=== PATIENT | male | born 1965 | race Caucasian/White ===

== ENCOUNTER 2016-07-07 09:03 | Emergency (ER) | payer BC, OTHER ==
--- NOTE | 2016-07-07 09:34 | EDM.PDOC ---
ED HPI GENERAL MEDICAL PROBLEM - General Chief Complaint: Neuro Symptoms/Deficits Stated Complaint: NUMBNESS IN FACE Time Seen by Provider: 07/07/16 09:29 - History of Present Illness INITIAL COMMENTS - FREE TEXT/NARRATIVE: HISTORY AND PHYSICAL: History of present illness: Patient is a 51-year-old white male with no significant past medical history judgment chest pains off and on for last several days he states it is more in his left neck but does radiate to his chest he does not recall a particularly associated shortness of breath palpitations or diaphoresis he does have a family history of coronary artery disease and a history of borderline elevated cholesterol. He does not have pain at this time he denies any palliating or aggravating factor Review of systems: As per history of present illness and below otherwise all systems reviewed and negative. Past medical history: As per history of present illness and as reviewed below otherwise noncontributory. Surgical history: As per history of present illness and as reviewed below otherwise noncontributory. Social history: No reported history of drug or alcohol abuse. Family history: As per history of present illness and as reviewed below otherwise noncontributory. Physical exam: HEENT: Atraumatic, normocephalic, pupils reactive, negative for conjunctival pallor or scleral icterus, mucous membranes moist, throat clear, neck supple, nontender, trachea midline. Lungs: Clear to auscultation, breath sounds equal bilaterally, chest nontender. Heart: S1S2, regular, negative for clicks, rubs, or JVD. Abdomen: Soft, nondistended, nontender. Negative for masses or hepatosplenomegaly. Negative for costovertebral tenderness. Pelvis: Stable nontender. Genitourinary: Deferred. Rectal: Deferred. Extremities: Atraumatic, negative for cords or calf pain. Neurovascular unremarkable. Neuro: Awake, alert, oriented. Cranial nerves II through XII unremarkable. Cerebellum unremarkable. Motor and sensory unremarkable throughout. Exam nonfocal. Diagnostics: CBC CMP troponin PT/INR chest x-ray EKG Therapeutics: IV O2 monitor patient to take aspirin 324 mg this morning Impression: #1 chest pain Definitive disposition and diagnosis as appropriate pending reevaluation and review of above. - Related Data Allergies Allergy/AdvReac Type Severity Reaction Status Date / Time No Known Allergies Allergy Verified 07/07/16 09:10 Home Meds: Home Meds . [No Known Home Meds] 07/07/16 [History] Past Medical History Neurological History: Reports: Other (see below) Other Neuro History: [facility] P[facility]y Social & Family History - Family History Family Medical History: Noncontributory - Tobacco Use Smoking Status *Q: Never Smoker - Recreational Drug Use Recreational Drug Use: No ED ROS GENERAL - Review of Systems Review Of Systems: ROS reveals no pertinent complaints other than HPI. ED EXAM, GENERAL - Physical Exam Exam: See Below Course - Vital Signs Text/Narrative:: Patient was offered admission for observation we discussed risks benefits and as clinical statement as well as reviewed all of his diagnostic care patient for outpatient followup declined admission for observation understands risks benefits his return as needed as discussed he is to call clinic for followup and followup with cardiology for appropriate further testing and evaluation as discussed Last Recorded V/S: Last Vital Signs Temp 35.7 C 07/07/16 09:10 Pulse 47 L 07/07/16 09:37 Resp 18 07/07/16 09:37 BP 142/82 H 07/07/16 09:37 Pulse Ox 100 07/07/16 09:37 - Orders/Labs/Meds Orders: Active Orders 24 hr Category Date Time Status EKG 12 Lead [EKG Documentation Completion] [RC] STAT Care 07/07/16 09:20 Active Chest 1V Frontal [CR] Stat Exams 07/07/16 09:19 Taken COMPREHENSIVE METABOLIC PN,CMP [CHEM] Stat Lab 07/07/16 09:27 Received Labs: Laboratory Tests 07/07/16 07/07/16 07/07/16 Range/Units 09:27 09:27 09:27 WBC 4.99 (4.0-11.0) K/uL RBC 4.51 (4.50-5.90) M/uL Hgb 14.5 (13.0-17.0) g/dL Hct 42.4 (38.0-50.0) % MCV 94.0 (80.0-98.0) fL MCH 32.2 H (27.0-32.0) pg MCHC 34.2 (31.0-37.0) g/dL RDW Std Deviation 46.3 (28.0-62.0) fl RDW Coeff of Mehdi 14 (11.0-15.0) % Plt Count 166 (150-400) K/uL MPV 10.10 (7.40-12.00) fL Neut % (Auto) 62.1 (48.0-80.0) % Lymph % (Auto) 26.3 (16.0-40.0) % Newberry % (Auto) 9.8 (0.0-15.0) % Eos % (Auto) 1.2 (0.0-7.0) % Baso % (Auto) 0.6 (0.0-1.5) % Neut # (Auto) 3.1 (1.4-5.7) K/uL Lymph # (Auto) 1.3 (0.6-2.4) K/uL Newberry # (Auto) 0.5 (0.0-0.8) K/uL Eos # (Auto) 0.1 (0.0-0.7) K/uL Baso # (Auto) 0.0 (0.0-0.1) K/uL Nucleated RBC % 0.0 /100WBC Nucleated RBCs # 0 K/uL INR 1.04 (0.86-1.11) Troponin I < 0.10 (0.0-0.29) NG/ML Departure - Departure Time of Disposition: 10:18 Disposition: Home, Self-Care 01 Condition: good Clinical Impression: Chest pain Forms: ED Department Discharge Additional Instructions: The following information is given to patients seen in the emergency department who are being discharged to home. This information is to outline your options for follow-up care. We provide all patients seen in our emergency department with a follow-up referral. The need for follow-up, as well as the timing and circumstances, are variable depending upon the specifics of your emergency department visit. If you don't have a primary care physician on staff, we will provide you with a referral. We always advise you to contact your personal physician following an emergency department visit to inform them of the circumstance of the visit and for follow-up with them and/or the need for any referrals to a consulting specialist. The emergency department will also refer you to a specialist when appropriate. This referral assures that you have the opportunity for followup care with a specialist. All of these measure are taken in an effort to provide you with optimal care, which includes your followup. Under all circumstances we always encourage you to contact your private physician who remains a resource for coordinating your care. When calling for followup care, please make the office aware that this follow-up is from your recent emergency room visit. If for any reason you are refused follow-up, please contact the [facility] emergency department at and asked to speak to the emergency department charge nurse. ANUPAM [facility] Primary [facility] [place] [id number] Followup clinic above and cardiology as discussed aspirin daily return as needed as discussed - My Orders Last 24 Hours: My Active Orders 07/07/16 09:19 Chest 1V Frontal [CR] Stat 07/07/16 09:20 EKG 12 Lead [EKG Documentation Completion] [RC] STAT 07/07/16 09:27 COMPREHENSIVE METABOLIC PN,CMP [CHEM] Stat - Assessment/Plan Last 24 Hours: My Active Orders 07/07/16 09:19 Chest 1V Frontal [CR] Stat 07/07/16 09:20 EKG 12 Lead [EKG Documentation Completion] [RC] STAT 07/07/16 09:27 COMPREHENSIVE METABOLIC PN,CMP [CHEM] Stat
[2016-07-07 10:16] LABS: CHLORIDE,CL 106 mmol/L (98-110); SODIUM,NA 139 mmol/L (136-146)
[2016-07-07 10:32] VITALS: BP 136/77
--- NOTE | 2016-07-07 16:21 | CR ---
EXAM DATE: 07/07/16 PATIENT'S AGE: 51 Patient: MARTINA KAY Facility: [place], [place] Site . Site : [id number] Study: XRay Chest [id number]/26/2017 9:50:52 AM Ordering Physician: Doctor Lo Final Report: INDICATION: chest tightness FINDINGS: A single portable chest x-ray shows a normal cardiac silhouette. The lungs show no focal pulmonary opacities. Sharp pleural margins. No pneumothorax. Old right upper rib fractures. IMPRESSION: No evidence of acute pulmonary abnormalities. Dictated by Carlos Dhaliwal MD @ 07/07/2016 9:59:01 AM Dictated by: Carlos Dhaliwal MD @ 07/07/2016 09:59:10 (Electronic Signature) Report Signed by Proxy and Original Signed Document filed in the Medical Record. MTDD
== END 2016-07-07 10:28 | disposition home or self-care (01) ==
LOC: MW.ED 09:03
DX: R07.9 Chest pain, unspecified (principal)
CPT/HCPCS: 36415; 71010; 71010-26; 80053; 84484; 85025; 85610; 93005; 99284; 99284-25

== ENCOUNTER → 2016-07-16 | Outpatient (CLI) | payer OTHER ==
--- NOTE | 2016-07-16 10:00 | PCM.PRNOTE ---
- Free Text/Narrative Note: Exercise MIBI Indication CP Sestamibi Tc99 25 MCi was given at the peak HR Patient was brought to the stress test lab in postabsorptive state verbal and paper consent was obtained from patient Vital signs at resting state blood pressure of 112/72 with a heart rate of 61 EKG shows sinus rhythm no ST changes no Q waves Maximal heart rate of 162and target heart rate is 144 Patient reached the target heart rate, completed stage V Lake protocol Peak blood pressure is 134/80 Total exercise time of 12.[address] changes with a peak heart rate, with occasional PVCs METS 12.8 No symptom of chest pain or feeling dizzy Impression Normal hemodynamics, normal chronotropic, excellent exercise capacity, negative for ischemia on EKG Plan Nuclear portion pending
--- NOTE | 2016-07-19 14:18 | NM ---
EXAMINATION: Nuclear medicine myocardial perfusion study with exercise stress test. HISTORY: Chest pain. PROCEDURE: Patient exercised according to Lake protocol for 12 minutes and 32 seconds and achieved maximal hea rt rate of 162 beats per minute. Adequate exercise. Following intravenous administration of 27.2 mCi of technetium 99m sestamibi, stress SPECT images i ncluding gating imaging was performed. FINDINGS: Stress myocardial SPECT images demonstrates minimally decreased perfusion along the inferior wall, h owever reviewing the source images this likely represents diaphragmatic attenuation. Review of gated images demonstrates normal wall motion, contractility and wall thickening. The left ventricular ejection fraction is 59 %. The left ventricular chamber size is normal. IMPRESSION: 1. No evidence of myocardial ischemia. 2. Normal ventricular chamber size and function with ejection fraction of 59 %.
== END ==
LOC: MW.NM 06:50
PROVIDERS: ATTEND Internal Medicine
DX: R07.9 Chest pain, unspecified (principal)
CPT/HCPCS: 78451; 78451-26; 93017; A9500

== ENCOUNTER → 2016-07-20 | Outpatient (CLI) | payer OTHER ==
--- NOTE | 2016-08-11 11:22 | NM ---
EXAM DATE: 07/20/16 PATIENT'S AGE: 51 REPORT ADDENDUM ADDENDUM: Additional images were obtained at rest following the administration of 25 mCi of technetium 99m labeled sestamibi. FINDINGS/IMPRESSION: Overall the perfusion pattern at rest is similar to the stress images without evidence of a reversible defect. Wall motion and ejection fraction is similar at 55%. The TID is 1.1. Addendum Dictated by: Armando Medrano MD <Electronically signed by Armando Medrano MD in OV> 07/20/16 1601 58 58 EXAMINATION: Nuclear medicine myocardial perfusion study with exercise stress test. HISTORY: Chest pain. PROCEDURE: Patient exercised according to Lake protocol for 12 minutes and 32 seconds and achieved maximal heart rate of 162 beats per minute. Adequate exercise. Following intravenous administration of 27.2 mCi of technetium 99m sestamibi, stress SPECT images including gating imaging was performed. FINDINGS: Stress myocardial SPECT images demonstrates minimally decreased perfusion along the inferior wall, however reviewing the source images this likely represents diaphragmatic attenuation. Review of gated images demonstrates normal wall motion, contractility and wall thickening. The left ventricular ejection fraction is 59 %. The left ventricular chamber size is normal. IMPRESSION: 1. No evidence of myocardial ischemia. 2. Normal ventricular chamber size and function with ejection fraction of 59 %. Dictated by: Armando Medrnao MD <Electronically signed by Armando Medrano MD in [place]> 07/16/16 at 0952 0 0 Doc Number: [id number] Copies To: Nereida Horvath MD; PCP,None~ MTDD
== END | disposition home or self-care (01) ==
LOC: MW.NM 13:14
PROVIDERS: ATTEND Internal Medicine
DX: R07.9 Chest pain, unspecified (principal)
CPT/HCPCS: 78451; A9500